=== PATIENT | male | born 1965 | race Two or more races ===

== ENCOUNTER 2017-02-18 07:27 | Emergency (ER) | payer MEDICAID, OTHER ==
[~2017-02-18] VITALS: Ht 167.6 cm; Wt 78.5 kg
[2017-02-18 07:30] VITALS: Ht 167.6 cm; Wt 78.5 kg
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
[2017-02-18] MEDS ORDERED: CYCL-319 PO (07:53)
[2017-02-18] MEDS ORDERED: ACET500C5 PO (07:53)
[2017-02-18] MEDS ORDERED: HYDROCODONE/APAP (5/325) TAB PO ONE (08:00)
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
== END 2017-02-18 08:35 | disposition home or self-care (01) ==
LOC: FTE 07:27
DX: M54.9 Dorsalgia, unspecified (principal); Z04.1 Encounter for examination and observation following transport accident
CPT/HCPCS: 72100

== ENCOUNTER 2018-06-29 20:50 | Emergency (ER) | END 2018-06-29 23:26 | disposition home or self-care (01) ==